=== PATIENT | male | born 1990 ===

== ENCOUNTER → 2018-03-26 | Outpatient (CLI) | payer OTHER ==
--- NOTE | 2018-03-27 10:51 | RADIOLOGY REPORT (SQ) ---
EXAM DESCRIPTION: U/S SCROTUM W/O DOPPLER COMPLETED DATE/TIME: 03/26/2018 5:47 pm REASON FOR STUDY: N50.9 DISORDER OF MALE GENITAL ORGANS, UNSPECIFIED N50.9 DISORDER OF MALE GENITAL ORGANS, UNSPECIFIED COMPARISON: None. TECHNIQUE: Static and realtime kuo scale imaging of the scrotum and testes. Selected color Doppler and spectral images recorded to document blood flow. LIMITATIONS: None. FINDINGS: RIGHT: TESTICLE: Normal size. Normal echotexture. Normal blood flow. No mass. EPIDIDYMIS: Normal. HYDROCELE OR VARICOCELE: No. HERNIA OR EXTRA-TESTICULAR MASS: No. OTHER: No other significant finding. LEFT: TESTICLE: Normal size. Normal echotexture. Normal blood flow. No mass. EPIDIDYMIS: Normal. HYDROCELE OR VARICOCELE: No. HERNIA OR EXTRA-TESTICULAR MASS: No. OTHER: 1.3 cm solid mass in the hemiscrotum on the left separate from the testicle and not within the scrotal sac. Adjacent to the rete testis. IMPRESSION: Non testicular solid scrotal mass on the left measuring 1.3 cm. Normal testicles. TECHNICAL DOCUMENTATION: JOB ID: [id number] [email or web address] All Rights Reserved Reading location - IP/workstation name: [email or web address]
== END ==
LOC: RAD 18:18
PROVIDERS: ATTEND Nurse Practitioner Family
DX: N50.9 Disorder of male genital organs, unspecified (principal)
CPT/HCPCS: 76870